=== PATIENT | female | born 1965 | race Hispanic/Latino ===

== ENCOUNTER 2019-07-11 00:40 | Inpatient (IN) | payer OTHER ==
[~2019-07-11] VITALS: Ht 162.6 cm; Wt 89.8 kg
[~2019-07-11 00:40] MED LIST: BACTRIM DS1 EA; [UNRECOGNIZED DRUG - OTHER]; [UNRECOGNIZED DRUG - OTHER]
--- OUTSIDE RECORDS SUMMARY | 2019-07-11 00:44 | XMS REPORT | Summary of Care ---
Author Author Deanna Devlin R.N. Unknown Address Unknown Phone Unavailable Care Team Providers Care Mechanical Technician Name Role Phone LEONARD N.P., JOSETTE Unavailable Unavailable Deanna Devlin R.N. Unavailable Unavailable DORIS N.P., LOUIE Unavailable Unavailable DEDRICK BECKMAN, CODY Ford Unavailable Unavailable DEDRICK Garces, CODY Unavailable Unavailable EDWIN BECKMAN, DELVIN Unavailable Unavailable ADAM BECKMAN MS, KINA Unavailable Unavailable YESSENIA BECKMAN MS, KENDRICK CHAIREZ Unavailable Unavailable LEONARD OIL FURNACE INSTALLER-C, JOSETTE THI Unavailable Unavailable ALDEN BECKMAN, DONALD Unavailable Unavailable Unavailable Unavailable Functional Status Name Dates Details Functional status health issues are not documented Status: Name Dates Details Cognitive status health issues are not documented Status: Problems Name Dates Details 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 (V72.31, Z01.419) Status: Active Visit for screening mammogram (V76.12, Z12.31) Status: Active Arthralgia of multiple sites (719.49, M25.50) Status: Active Morbid or severe obesity due to excess calories (278.01, E66.01) Status: Active Forearm joint pain, left (719.43, M25.532) Status: Active Forearm joint pain, right (719.43, M25.531) Status: Active Chronic low back pain (724.2, M54.5) Status: Active Posterior pain of hip, left (719.45, M25.552) Status: Active Posterior pain of hip, right (719.45, M25.551) Status: Active Arthralgia of left foot (719.47, M25.572) Status: Active Arthralgia of right foot (719.47, M25.571) Status: Active Plantar fasciitis, bilateral (728.71, M72.2) Status: Active Inflammatory arthritis (714.9, M19.90) Status: Active Joint pain (719.40, M25.50) Status: Active Heart palpitations (785.1, R00.2) Status: Active Anxiety (300.00, F41.9) Status: Active Hot flashes (782.62, R23.2) Status: Active Vitamin D deficiency (268.9, E55.9) Status: Active Urticaria (708.9, L50.9) Status: Active Allergic reaction, initial encounter (995.3, T78.40XA) Status: Active Lateral epicondylitis of left elbow (726.32, M77.12) Status: Active Medial epicondylitis, left (726.31, M77.02) Status: Active Chronic right shoulder pain (719.41, M25.511) Status: Active Abnormal findings on imaging test (793.99, R93.89) Status: Active Arthralgia of hand, left (719.44, M25.542) Status: Active Arthralgia of hand, right (719.44, M25.541) Status: Active Breast cancer screening (V76.10, Z12.39) Status: Active Colon cancer screening (V76.51, Z12.11) Status: Active Menopause (627.2, Z78.0) Status: Active Screening for HIV (human immunodeficiency virus) (V73.89, Z11.4) Status: Active Chest pain, atypical (786.59, R07.89) Status: Active Hyperglycemia (790.29, R73.9) Status: Active Screening for osteoporosis (V82.81, Z13.820) Status: Active Morbid obesity (278.01, E66.01) Status: Active Chest pain (786.50, R07.9) Status: Active Pre-op evaluation (V72.84, Z01.818) Status: Active Pre-operative examination (V72.84, Z01.818) Status: Active Benign essential hypertension (401.1, I10) Status: Active Abdominal pain (789.00, R10.9) Status: Active Right upper quadrant abdominal pain (789.01, R10.11) Status: Active Obesity, morbid, BMI 40.0-49.9 (278.01, E66.01) Status: Active Urethral irritation (599.9, N36.8) Status: Active Vaginal discharge (623.5, N89.8) Status: Active Vaginal itching (698.1, N89.8) Status: Active Vaginal odor (625.8, N89.8) Status: Active Vaginitis and vulvovaginitis (616.10, N76.0) Status: Active Medications Name Dates Details EpiPen BUCK Active Losartan Potassium 25 MG Oral Tablet TAKE 1 TABLET DAILY * Quantity: 1 Refills: 5 LEONARD N.P., JOSETTE * Start : 20-Dec-2018 Active 30 Tablet Bottle Terconazole 0.8 % Vaginal Cream INSERT 1 APPLICATORFUL INTRAVAGINALLY AT BEDTIME NIGHTLY FOR 3 DAYS. * Quantity: 1 Refills: 0 DORIS N.P., LOUIE * Start : 19-Apr-2019 Active 20 GM Tube metroNIDAZOLE 0.75 % Vaginal Gel INSERT 1 APPLICATORFUL INTRAVAGINALLY AT BEDTIME NIGHTLY FOR 5 DAYS. * Quantity: 1 Refills: 0 DORIS N.P., LOUIE * Start : 19-Apr-2019 Active 70 GM Tube Allergies and Adverse Reactions Name Dates Details No Known Drug Allergies (Allergy) Status: Active Procedures Procedure Dates Details History of Total Abdominal Hysterectomy Completed History of Tubal Ligation Completed History of Hysterectomy Completed Immunization Name Dates Details Tdap Comments: Approx [id number] Influenza Not Administered Family History Name Dates Details Family history of diabetes mellitus (V18.0, Z83.3) Status: Active Name Dates Details Family history of diabetes mellitus (V18.0, Z83.3) Status: Active Name Dates Details Family history of diabetes mellitus (V18.0, Z83.3) Status: Active Name Dates Details Family history of rheumatoid arthritis (V17.7, Z82.61) Status: Active Family history of cardiac disorder (V17.49, Z82.49) Status: Active Family history of hypertension (V17.49, Z82.49) Status: Active Family history of Presence of stent in artery (V49.89, Z95.828) Status: Active Family history of CABG Status: Active Adopted (V68.89, Z02.82) Status: Active Name Dates Details Family history of osteoarthritis (V17.89, Z82.69) Status: Active Social History Name Dates Details - Status: Name Dates Details Former smoker Vital Signs Date Test Result Details No Known Vitals to report Results Date Description Value Details Results not documented Plan of Care Name Dates Details Planned Observations Planned Goals not documented Instructions Name Dates Details Instructions not documented Encounters Appointment; MARVIN SANTOS P.A. Encounter Diagnosis: Problem not documented On: 15-Nov-2017 15:30 Appointment; ECHO NGUYEN NP Encounter Diagnosis: Problem not documented On: 20-Jan-2018 10:15 Appointment; KINA MEDINA M.D. Encounter Diagnosis: Problem not documented On: 19-Sep-2018 9:30 Appointment; JOSETTE LEONARD NP Encounter Diagnosis: Problem not documented On: 20-Dec-2018 17:30 Appointment; DONALD RUANO M.D. Encounter Diagnosis: Problem not documented On: 16-Jan-2019 14:40 Appointment; JOSETTE LEONARD NP Encounter Diagnosis: Problem not documented On: 23-Jan-2019 15:00 Appointment; IVAN MONTERO Encounter Diagnosis: Problem not documented On: 25-Jan-2019 15:00 Appointment; LOUIE GEORGE NP Encounter Diagnosis: Problem not documented On: 19-Apr-2019 12:45
--- OUTSIDE RECORDS SUMMARY | 2019-07-11 00:44 | XMS REPORT | Summary of Care ---
Author Author Kellee Devlin R.N. Organization Unknown Address Unknown Phone Unavailable Care Team Providers Care Principal Technologist Name Role Phone LEONARD N.P., JOSETTE Unavailable Unavailable Claus Ortega, Kellee Unavailable Unavailable DORIS N.P., LOUIE Unavailable Unavailable DEDRICK BECKMAN, CODY Ford Unavailable Unavailable DEDRICK Garces, CODY Unavailable Unavailable EDWIN BECKMAN, DELVIN Unavailable Unavailable ADAM BECKMAN SD, KINA Unavailable Unavailable YESSENIA BECKMAN SD, KENDRICK CHAIREZ Unavailable Unavailable HORACIO NUCLEAR FUELS RESEARCH ENGINEER-C, JOSETTE THI Unavailable Unavailable ALDEN BECKMAN, DONALD Unavailable Unavailable Unavailable Unavailable Functional Status Name Dates Details Functional status health issues are not documented Status: Name Dates Details Cognitive status health issues are not documented Status: Problems Name Dates Details 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 (V72.31, Z01.419) Status: Active Visit for [...] Immunization Name Dates Details Tdap Comments: Approx [id number] Influenza Not Administered Family History Name Dates [...] smoker Vital Signs Date Test Result Details [id number] BP Systolic 132 mm[Hg] Status: Comments: Location: [facility]; Position: Sitting BP Diastolic 90 mm[Hg] Status: Comments: Location: [facility]; Position: Sitting Height 64 in Status: Weight 240.5625 lb Status: Body Mass Index Calculated 41.29 kg/m2 Status: Body Surface Area Calculated 2.12 m2 Status: Temperature 98 f Status: Comments: Method: Temporal Heart Rate 70 /min Status: Comments: Location: L Brachial Artery; Respiration Rate 16 /min Status: Comments: Quality: Normal Results Date Description Value Details :00 [[facility]] URINALYSIS, COMPLETE COLOR DARK YELLOW (Normal) Range: YELLOW APPEARANCE CLOUDY (Abnormal) Range: CLEAR SPECIFIC GRAVITY 1.035 (Normal) Range: 1.001-1.035 PH 5.5 (Normal) Range: 5.0-8.0 GLUCOSE NEGATIVE (Normal) Range: NEGATIVE BILIRUBIN NEGATIVE (Normal) Range: NEGATIVE Comments: Verified by repeat analysis. KETONES 3+ (Abnormal) Range: NEGATIVE OCCULT BLOOD TRACE (Abnormal) Range: NEGATIVE PROTEIN 1+ (Abnormal) Range: NEGATIVE NITRITE NEGATIVE (Normal) Range: NEGATIVE LEUKOCYTE ESTERASE 2+ (Abnormal) Range: NEGATIVE WBC > OR=60 {/HPF} (Abnormal) Range: < OR=5 RBC 3-10 {/HPF} (Abnormal) Range: < OR=2 SQUAMOUS EPITHELIAL CELLS > OR=28 {/HPF} (Abnormal) Range: < OR=5 BACTERIA FEW {/HPF} (Abnormal) Range: NONE SEEN CALCIUM OXALATE CRYSTALS FEW {/HPF} (Normal) Range: NONE OR FEW HYALINE CAST 4-5 {/LPF} (Abnormal) Range: NONE SEEN COMMENTS MODERATE MUCOUS THREADS :00 [[facility]] CULTURE, URINE, ROUTINE CULTURE Comments: CULTURE, URINE, ROUTINE Micro Number: [id number] Test Status: Final Specimen Source: URINE Specimen Quality: Adequate Result: Three or more organisms present, each greater than 10,000 CFU/mL. May represent normal zurdo contamination from external genitalia. No further testing is required. Plan of Care Name Dates Details Planned [...]
--- OUTSIDE RECORDS SUMMARY | 2019-07-11 00:44 | XMS REPORT ---
Author Author [facility] Address Unknown Phone Unavailable Care Team Providers Care Medical Secretary Receptionist Name Role Phone Unavailable Unavailable Payers Payer Name Policy Type Policy Number Effective Date Expiration Date Problems This patient has no known problems. Allergies, Adverse Reactions, Alerts Allergy Name Allergy Type Status Severity Reaction(s) Onset Date Inactive Date Treating Clinician Comments No Known Contrast Allergies DA Active U 2008-10-11 00:00:00 No Known Drug Allergies DA Active U 2008-10-11 00:00:00 No Known Food Allergies DA Active U 2008-10-11 00:00:00 No Known Other Allergies DA Active U 2008-10-11 00:00:00 Medications This patient has no known medications. Results Test Description Test Time Test Comments Text Results Atomic Results Result Comments SCR MAMM BILATERAL EUNICE CAD DIGITAL 2019-01-09 09:17:55 - SCR MAMM BILATERAL EUNICE CAD DIGITALBILATERAL DIGITAL SCREENING MAMMOGRAM 3D/2D WITH CAD: 01/05/2019CLINICAL: Asymptomatic. Digital breast tomosynthesis was performed in addition to routine CC and MLO views. Current mammographic images were evaluated by either a [employer] M-Vu or a [employer] ImageChecker CAD (computer aided detection system). No prior exams were available for comparison. The tissue of both breasts is heterogeneously dense. This may lower the sensitivity of mammography. No suspicious mass, architectural distortion, malignant type calcification, or lymph node abnormality detected. IMPRESSION: NEGATIVEThere is no mammographic evidence of malignancy. Resume annual screening mammography in one year. Benson mckay/gretarad:01/09/2019 09:17:55 Branch Library Clerk: Katherine Gardner FW, [facility]-FWletter sent: BIRADS 1-2 Normal Mammogram BI-RADS: 1 Negative - CT MAXIFAC W/O CONTRAST 2018-10-06 07:35:00 Name: ARIAS WALKER [facility] Thuy Peacock : 1965 Age/S: 53 / F [address] [place] [address] Blvd Unit #: [id number] Loc: [place] [address] Phys: Jeremy Stern MD Acct: [id number] Dis Date: Status: REG CLI PHONE #: [phone] Exam Date: 10/06/2018 07 FAX #: [phone] Reason: J32.4 CHRONIC PANSINUSUTUS EXAMS: CPT CODE: [id number] CT MAXIFAC W/O CONTRAST 96495 Study: - CT MAXIFAC W/O CONTRAST 10/06/2018 6:57 AM Clinical Indication: J32.4 CHRONIC PANSINUSUTUS Comparison: No prior similar examinations are available for review. TECHNIQUE: Multiple noncontrast transaxial CT images were obtained through the paranasal sinuses. Sagittal and coronal reformatted images were prepared. DOSE: CT imaging performed at this location utilizes radiation dose optimization technique which includes one or more of the followin) Automated exposure control; 2) Adjustment of the mA and/or kV according to patient's size; 3) Use of iterative reconstruction techniques. DLP (mGy-cm): 280 FINDINGS: ETHMOID SINUS: No significant mucoperiosteal thickening. MAXILLARY SINUSES: Mild mucosal thickening in the maxillary sinuses measuring up to 0.3 cm on the right and 0.2 cm on the left. FRONTAL SINUS: No significant mucoperiosteal thickening. The frontoethmoidal recesses are clear. SPHENOID SINUS: No significant mucoperiosteal thickening. The sphenoethmoidal recesses are clear. MASTOIDS: The visualized portions are well aerated. NASAL PASSAGES: Turbinates: The nasal turbinates are normal in appearance. Nasal septum: Mild rightward convexity of the posterior nasal septum and leftward convexity of the anterior nasal septum. Ostiomeatal complexes: Both ostiomeatal units are clear. IMPRESSION: 1. Mild mucosal thickening in the bilateral maxillary sinuses. 2. Mild convexity rightward convexity of the posterior nasal septum PAGE 1 Signed Report (CONTINUED) Name: ARIAS WALKER [facility] Thuy Peacock : 1965 Age/S: 53 / F [address] [place] [address] Unit #: [id number] Loc: [place] [address] Phys: Jeremy Stern MD Acct: [id number] Dis Date: Status: REG CLI PHONE #: [phone] Exam Date: 10/06/2018709 FAX #: [phone] Reason: J32.4 CHRONIC PANSINUSUTUS EXAMS: CPT CODE: [id number] CT MAXIFAC W/O CONTRAST 54459 <Continued> SL: [id number] at 0735 Reported and signed by: See Huang M.D. CC: Jeremy Stern MD Technologist:RT Aby(R)(CT) CTDI: DLP: Trnscb Date/Time: 10/06/2018 (0735) [email or web address] Orig Print D/T: S: 10/06/2018 (0738) PAGE 2 Signed Report
[2019-07-11] MEDS ORDERED: KETOROLAC TROMETHAMINE 30 MG/ML VIAL IV STA (01:27)
[2019-07-11] MEDS ORDERED: SODIUM CHLORIDE 0.9% 1000ML 2,000 ML IV STA (01:27)
[2019-07-11] MEDS ORDERED: ONDANSETRON HCL INJ 2MG/ML 2ML 2 MG/ML VIAL IV STA (01:27)
[2019-07-11] MEDS ORDERED: MORPHINE SULFATE INJ 4 MG/ML INJ 1ML IV ONE (01:30)
[2019-07-11 01:44] LABS: BASOPHILS % 0.4 % (0.0-1.0); EOSINOPHILS # (AUTO) 0.2 (0.0-0.4); EOSINOPHILS % 1.7 % (0.0-6.0); HEMOGLOBIN 14.8 g/dL (12.0-16.0); LYMPHOCYTES # (AUTO) 2.6 (1.0-3.2); LYMPHOCYTES % 26.7 % (18.0-39.1); MEAN CORPUSCULAR HEMOGLOBIN 31.2 pg (28-32); MEAN CORPUSCULAR HGB CONC 33.6 g/dL (31-35); MEAN CORPUSCULAR VOLUME 92.6 fL (81-99); MONOCYTES # (AUTO) 0.8 (0.2-0.8); MONOCYTES % 7.9 % (4.4-11.3); NEUTROPHILS # (AUTO) 6.2 (2.1-6.9); NEUTROPHILS % 63.1 % (38.7-80.0); PLATELET COUNT 215 x10e3/uL (140-360); RED BLOOD COUNT 4.75 x10e6/uL (3.6-5.1); RED CELL DISTRIBUTION WIDTH 14.3 % (11.7-14.4)
[2019-07-11] MEDS ORDERED: MORPHINE SULFATE INJ 4 MG/ML INJ 1ML ONE (01:44)
[2019-07-11] MEDS ORDERED: MORPHINE SULFATE 2 MG/ML SYR 1ML ONE (01:45)
[2019-07-11 01:54] LABS: BILIRUBIN,URINE 3+ (NEGATIVE); CLARITY,URINE CLOUDY (CLEAR); COLOR,URINE YELLOW (YELLOW); KETONES,URINE NEGATIVE (NEGATIVE); LEUKOCYTE ESTERASE ,URINE TRACE (NEGATIVE); NITRITE,URINE NEGATIVE (NEGATIVE); PROTEIN,URINE DIPSTICK 1+ (NEGATIVE); URINE UROBILINOGEN 0.2 mg/dL (0.2 - 1)
[2019-07-11 01:56] LABS: AMYLASE 39 U/L (25-125); LIPASE 28 U/L (8-78)
[2019-07-11 01:57] LABS: ALANINE AMINOTRANSFERASE 30 IU/L (0-55); ALBUMIN/GLOBULIN RATIO 1.4 (0.8-2.0); ALKALINE PHOSPHATASE 111 IU/L (40-150); ANION GAP 15.3 mmol/L (8-16); BLOOD UREA NITROGEN 14 mg/dL (7-26); BUN/CREATININE RATIO 15 (6-25); CALCIUM 9.3 mg/dL (8.4-10.2); CARBON DIOXIDE 20 mmol/L (22-29); CHLORIDE 110 mmol/L (98-107); CREATININE, SERUM 0.92 mg/dL (0.57-1.11); EST GLOMERULAR FILTRATION RATE > 60 ML/MIN (60-); GLUCOSE 111 mg/dL (74-118); POTASSIUM 3.3 mmol/L (3.5-5.1); SODIUM 142 mmol/L (136-145)
[2019-07-11 01:58] LABS: BACTERIA,URINE MANY /HPF; EPITHELIAL CELLS,URINE FEW /LPF; RBC,URINE >50 /HPF (0-5)
[2019-07-11 01:59] LABS: CALCIUM OXALATE CRYSTALS,UR MANY (FEW); MUCUS,URINE FEW (RARE)
[2019-07-11] MEDS ORDERED: MORPHINE SULFATE INJ 4 MG/ML INJ 1ML IV PRN (02:00)
[2019-07-11] MEDS ORDERED: IOPAMIDOL 370 MG/ML 200 ML INFUS..BTL INJ ONE (03:02)
[2019-07-11] MEDS ORDERED: SODIUM CHLORIDE 0.9% 50ML 50 ML ONE (03:03)
--- NOTE | 2019-07-11 04:14 | Diagnostic Imaging Report ---
EXAMINATION: CHEST SINGLE (PORTABLE) INDICATION: Right lower quadrant pain, abdominal pain, hematuria COMPARISON: None FINDINGS: TUBES and LINES: None. LUNGS: Normal lung volumes. Lungs are clear. No consolidations. PLEURA: No pleural effusion or pneumothorax. HEART AND MEDIASTINUM: The cardiomediastinal silhouette is unremarkable. BONES AND SOFT TISSUES: No acute osseous lesion. Soft tissues are unremarkable. UPPER ABDOMEN: No free air under the diaphragm. IMPRESSION: No acute thoracic radiographic abnormality. Signed by: Casper Woo DO on 07/11/2019 4:11 AM
--- NOTE | 2019-07-11 04:40 | Diagnostic Imaging Report ---
EXAM: Transabdominal and Transvaginal Pelvic Ultrasound INDICATION: Right lower quadrant pain COMPARISON: None TECHNIQUE: Grayscale transverse and sagittal transabdominal and transvaginal images were obtained of the pelvis. Transvaginal imaging was medically necessary to better evaluate the endometrium and the adnexa. CLINICAL HISTORY: 89 year old G... ; hysterectomy FINDINGS: Uterus: Removed. Ovaries not seen. Adnexa: Normal Cul-de-sac: No free fluid IMPRESSION: Patient has had hysterectomy and the ovaries were not seen. Otherwise no sonographic abnormality. Signed by: Casper Woo DO on 07/11/2019 4:37 AM
--- NOTE | 2019-07-11 04:45 | Diagnostic Imaging Report ---
EXAM: CT Abdomen and Pelvis WITH contrast INDICATION: Right lower quadrant pain COMPARISON: Same day pelvis ultrasound TECHNIQUE: Abdomen and pelvis were scanned utilizing a multidetector helical scanner from the lung base to the pubic symphysis after administration of IV contrast. Coronal and sagittal reformations were obtained. Routine protocol was performed. Scan was performed when during portal venous phase. IV CONTRAST: 100 mL of Isovue 370 ORAL CONTRAST: Water COMPLICATIONS: None RADIATION DOSE: Total DLP: 709 mGy*cm Estimated effective dose: (DLP x 0.015 x size factor) mSv CTDIvol has been reviewed. It is below the limits set by the Radiation Protocol Committee (RPC). Dose modulation, iterative reconstruction, and/or weight based adjustment of the mA/kV was utilized to reduce the radiation dose to as low as reasonably achievable. FINDINGS: LINES and TUBES: None. LOWER THORAX: Unremarkable HEPATOBILIARY: No focal hepatic lesions. No biliary ductal dilation. GALLBLADDER: No radio-opaque stones or sludge. No wall thickening. Distended. SPLEEN: No splenomegaly. PANCREAS: No focal masses or ductal dilatation. ADRENALS: No adrenal nodules KIDNEYS/URETERS: A 5 mm obstructive calculus in the proximal right ureter with mild right hydronephrosis. Mild right renal hypoenhancement relative to the left. No hydronephrosis. No cystic or solid mass lesions. GI TRACT: No abnormal distention, wall thickening, or evidence of bowel obstruction. Moderate colonic stool burden. Intact changes of partial gastrectomy. Appendix is normal. PELVIC ORGANS/BLADDER: Unremarkable. LYMPH NODES: No lymphadenopathy. VESSELS: Unremarkable. PERITONEUM / RETROPERITONEUM: No free air or fluid. BONES: There are degenerative changes in the spine. SOFT TISSUES: Unremarkable. IMPRESSION: 1. A 5 mm obstructive calculus in the proximal right ureter with mild right hydronephrosis. 2. Moderate colonic stool burden, correlate for constipation. 3. Distended gallbladder, correlate for cholecystitis. Signed by: Casper Woo DO on 07/11/2019 4:42 AM
[2019-07-11 04:54] LABS: AMPHETAMINES SCREEN,URINE NEGATIVE (NEGATIVE); BENZODIAZEPINES SCREEN,URINE NEGATIVE (NEGATIVE); PHENCYCLIDINE SCREEN,URINE NEGATIVE (NEGATIVE)
[2019-07-11] MEDS ORDERED: POTASSIUM CHLORIDE 10MEQ EA PO ONE (06:00)
[2019-07-11] MEDS ORDERED: CEFTRIAXONE SOD 1 GM VIAL IV SCH (06:00)
--- NOTE | 2019-07-11 06:31 | History and Physical ---
REASON FOR ADMISSION: Right kidney stone. HISTORY OF PRESENT ILLNESS: The patient is a 54-year-old lady, presented after she has history of right-sided abdominal flank pain where she was noticed in the emergency room on CT scan to have a 5 mm obstructing kidney stone, is currently pain free after pain medications, so she has been admitted for further evaluation. PAST MEDICAL HISTORY: Weight loss. PAST SURGICAL HISTORY: Otherwise unremarkable. MEDICATIONS: None. ALLERGIES: SEE MAR. SOCIAL HISTORY: . Nonsmoker, nondrinker. FAMILY HISTORY: Hypertension. PHYSICAL EXAMINATION: VITAL SIGNS: Temperature 98.6, pulse 74, blood pressure 136/78, and sats 98% on room air. GENERAL: She is no apparent distress, lying in bed. NECK: Supple. CARDIOVASCULAR: Regular rate and rhythm. LUNGS: Clear to auscultation bilaterally. ABDOMEN: Good bowel sounds. Soft, nontender. No flank tenderness. EXTREMITIES: No clubbing or cyanosis. NEUROLOGIC: Nonfocal. ASSESSMENT AND PLAN: 1. Kidney stone. We will go ahead and consult Urology and make the patient n.p.o. and continue with pain medication. 2. Abdominal pain/flank pain. We will continue with pain control. 3. Hypokalemia. We will replace. 4. Urinary tract infection. We will place her on IV antibiotics. Please see hospital chart for full details. MD NIR Schmidt/ADA /[id number]
[2019-07-11] MEDS: CEFTRIAXONE SOD 1 GM/NS 50 ML 50 ML IV SCH (06:36)
--- NOTE | 2019-07-11 09:20 | Diagnostic Imaging Report ---
EXAM: Right upper quadrant abdominal ultrasound INDICATION: Abdominal pain, query cholecystitis. COMPARISON: CT abdomen/pelvis 07/11/2019. TECHNIQUE: Transverse and longitudinal images of the right upper quadrant abdomen were obtained FINDINGS: Liver: Size: 17.5 cm in the right midclavicular line, normal Appearance: Increased echogenicity, smooth contour Mass: No focal masses Gallbladder: Distended gallbladder with sludge. Gallbladder wall measures 0.2 cm. Negative reported sonographic Avalos's sign. Bile Ducts: Intrahepatic Ducts: Mild intrahepatic ductal dilatation. Extrahepatic Ducts: Common bile duct measures 0.9 centimeters. Pancreas: Visualized portions appear unremarkable. Kidney: The right kidney measures 11.4 cm without evidence of hydronephrosis or stone. Vessels: Aorta: Visualized portions are normal. The distal aorta is not visualized due to overlying gas. Inferior Vena Cava: Visualized portions are normal Main Portal Vein: 1.0 cm, normal size with hepatopetal flow. Free Fluid: No ascites or pleural effusion IMPRESSION: Distended CBD, measuring up to 0.9 cm without visible stone. MRCP is recommended for further evaluation. Distended gallbladder with sludge. No evidence of cholelithiasis or specific findings of acute cholecystitis. Hepatomegaly and hepatic steatosis. Mild right hydronephrosis. Signed by: Dr. Salinas Lechuga MD on 07/11/2019 9:17 AM
--- NOTE | 2019-07-11 14:55 | Diagnostic Imaging Report ---
Exam: KUB - 2 views Indication: Hydronephrosis, renal calculi Comparison: CT abdomen and pelvis of 07/11/2019 Findings: There is mild right hydronephrosis and residual contrast in the right renal collecting system. Minimal residual contrast in the left renal collecting system. The right proximal ureteral calculus seen on CT of earlier the same day is not well seen on this radiograph. Surgical sutures in the left upper quadrant related to partial gastrectomy. Surgical clips in the right abdomen. Nonobstructive bowel gas pattern. No free air. Fluid within the pelvis. Small amount of contrast material in the bladder. Impression: Redemonstration of mild right hydronephrosis. Right ureteral calculus seen on CT of earlier the same day is not well visualized on this radiograph. Signed by: Negrita Barrera MD on 07/11/2019 2:52 PM
[2019-07-11 20:00] VITALS: BP 128/77
--- NOTE | 2019-07-11 20:02 | NUR ---
RECEIVED REPORT FROM [facility] NURSE. CALL LIGHT WITHIN REACH. PATIENT ARRIVED VIA WHEELCHAIR. PATIENT IN NO PAIN OR DISTRESS.
--- NOTE | 2019-07-11 20:29 | Consultation ---
DATE OF CONSULTATION: 07/11/2019 Urology Consultation REASON FOR CONSULTATION: Obstructive uropathy. HISTORY OF PRESENT ILLNESS: Loulou Joshua is a 54-year-old woman without any previous urological history. She denies hematuria, dysuria, drug infections, or urolithiasis. Denies any urinary incontinence. The patient has severe right-sided flank pain with nausea and vomiting. Reported to the emergency room. Underwent CT scanning with contrast, which revealed obstructing right midureteral stone. The patient's nausea and vomiting have improved. The patient's urine unfortunately has not been strained and the patient has not been on intravenous fluids despite being n.p.o. PAST MEDICAL AND SURGICAL HISTORY: 1. 3, para 3 by spontaneous vaginal delivery. 2. Bilateral tubal ligation. 3. Total vaginal hysterectomy. 4. "Duodenal switch" and gastric sleeve. ALLERGIES: NONE KNOWN. CURRENT MEDICATIONS: Please refer to the MAR. SOCIAL HISTORY: The patient denies smoking, ethanol, or drug use. She has supportive at the bedside. FAMILY HISTORY: Noncontributory to the active urological problems. REVIEW OF SYSTEMS: Discussed as above in the history of present illness and past medical history, otherwise negative for all systems. PHYSICAL EXAMINATION: GENERAL: Obese woman lying in bed, in no apparent distress. VITAL SIGNS: She is currently afebrile. Vital signs are currently stable. ABDOMEN: Soft, nondistended. It is tender in the right flank with right-sided costovertebral angle tenderness. Kidneys are not palpable without hepatosplenomegaly. No obvious evidence of hernia. For the remaining physical examination systems, please refer to the admission history and physical as well as the ERT sheet. LABORATORY STUDIES: CT scan of the abdomen and pelvis revealed a 5 mm obstructing stone in the proximal right ureter with right-sided hydroureteronephrosis. There is enhancement of the right kidney compared to the left due to this obstruction. There is a distended gallbladder also present. Urine culture is pending. White blood cell count is 9800, hemoglobin 14.8, and platelets 215,000. The patient's potassium is low at 3.3. Her creatinine is 0.92, calcium is normal at 9.3. Urinalysis significant for greater than 50 rbc's, 11-20 wbc's, many calcium oxalate crystals, many bacteria. ASSESSMENT: 1. Right renal colic. 2. Nausea and vomiting. 3. Obesity. 4. Right ureterolithiasis. 5. Right hydroureteronephrosis. 6. Hypocholesterolemia. 7. Urinary tract infection. 8. Microscopic hematuria. PLAN: 1. Intravenous antibiotics. 2. Intravenous hydration. 3. Straining of the urine. 4. I will post the patient for cystoscopy and retrograde pyelograms and insertion of temporary indwelling ureteral stent. I informed the patient and her that she will need followup and management of that stent with potential dire consequences of noncompliance. Thank you much for involving us in care of your patient. We will be happy to follow along with you as well as an outpatient. MD SUSIE Quintero/ADA /[id number] BRANDIN
[2019-07-11 20:30] VITALS: BP 128/77
[2019-07-11] MEDS ORDERED: INFLUENZA VIRUS VAC SPLIT INJ 0.5 ML SYR IM SCH (20:38)
[2019-07-11] MEDS ORDERED: PNEUMOCOCCAL VACCINE POLYVALENT 23 MCG/0.5 ML VIAL IM SCH (20:38)
[2019-07-11 20:59] VITALS: BP 128/77
--- NOTE | 2019-07-11 21:44 | NUR ---
CALLED AND TALKED TO DR. ALTAMIRANO ABOUT PATIENT BEING IN PAIN AND WANTING SOMETHING FOR PAIN. DR. ALTAMIRANO ORDERED MORPHINE 2 MG Q2H, TORADOL 30 MG Q6H, AND TYLENOL 1G IV. HE ALSO SAID TO STRAIN THE URINE
[2019-07-11] MEDS ORDERED: MORPHINE SULFATE 2 MG/ML SYR 1ML IV PRN (22:45)
[2019-07-11] MEDS ORDERED: KETOROLAC TROMETHAMINE 30 MG/ML VIAL IV PRN (22:45)
[2019-07-11] MEDS ORDERED: ACETAMINOPHEN 1000 MG/100 ML IV PRN (22:45)
[2019-07-12] VITALS (7 sets, daily range): BP systolic 133–165; BP diastolic 77–97
[2019-07-12] MEDS: CEFTRIAXONE SOD 1 GM/NS 50 ML 50 ML IV SCH (05:58)
[2019-07-12] MEDS ORDERED: SODIUM CHLORIDE 0.9% 250ML 250 ML ONE (06:08)
--- NOTE | 2019-07-12 07:00 | NUR ---
GAVE REPORT TO ONCOMING NURSE. CALL LIGHT WITHIN REACH. PATIENT IN BED. AT BEDSIDE
--- NOTE | 2019-07-12 07:18 | NUR ---
PATIENT LEFT IN HER BED FOR THE CYSTOSCOPY.
--- NOTE | 2019-07-12 07:26 | NUR ---
Received patient this morning and then was picked up for procedure r/t ureterolithiasis with placement of stents
[2019-07-12 07:39] LABS: BASOPHILS % 0.8 % (0.0-1.0); EOSINOPHILS # (AUTO) 0.2 (0.0-0.4); EOSINOPHILS % 4.2 % (0.0-6.0); HEMATOCRIT 39.4 % (34.2-44.1); HEMOGLOBIN 12.4 g/dL (12.0-16.0); LYMPHOCYTES # (AUTO) 2.1 (1.0-3.2); LYMPHOCYTES % 39.8 % (18.0-39.1); MEAN CORPUSCULAR HEMOGLOBIN 30.5 pg (28-32); MEAN CORPUSCULAR HGB CONC 31.5 g/dL (31-35); MEAN CORPUSCULAR VOLUME 96.8 fL (81-99); MONOCYTES # (AUTO) 0.6 (0.2-0.8); NEUTROPHILS # (AUTO) 2.3 (2.1-6.9); PLATELET COUNT 173 x10e3/uL (140-360); RED BLOOD COUNT 4.07 x10e6/uL (3.6-5.1); RED CELL DISTRIBUTION WIDTH 14.7 % (11.7-14.4)
[2019-07-12] MEDS ORDERED: B&O 60MG R/S 60 MG SUPP PR ONE (07:56)
[2019-07-12] MEDS ORDERED: IOPAMIDOL 300MG/ML 50ML INFUS..BTL IV ONE (07:56)
[2019-07-12 08:10] LABS: ALANINE AMINOTRANSFERASE 46 IU/L (0-55); ALBUMIN 3.4 g/dL (3.5-5.0); ALBUMIN/GLOBULIN RATIO 1.3 (0.8-2.0); ALKALINE PHOSPHATASE 101 IU/L (40-150); ANION GAP 9.6 mmol/L (8-16); BLOOD UREA NITROGEN 12 mg/dL (7-26); BUN/CREATININE RATIO 15 (6-25); CALCIUM 8.7 mg/dL (8.4-10.2); CARBON DIOXIDE 26 mmol/L (22-29); CHLORIDE 112 mmol/L (98-107); CREATININE, SERUM 0.81 mg/dL (0.57-1.11); EST GLOMERULAR FILTRATION RATE > 60 ML/MIN (60-); GLUCOSE 95 mg/dL (74-118); POTASSIUM 3.6 mmol/L (3.5-5.1); SODIUM 144 mmol/L (136-145)
[2019-07-12] MEDS ORDERED: B&O 60MG R/S 60 MG SUPP PR PRN (08:45)
--- NOTE | 2019-07-12 09:37 | NUR ---
Patient returned from having procedure done, s/p C/S with right stent placement, will obtain urine for c/s per orders, in bed, no distress at this time, call go Dr. Alexander by apartment community manager for consult.
[2019-07-12] MEDS: ACETAMINOPHEN/CODEINE 300MG - 30MG TAB PO PRN ×2 (09:46→18:39)
[2019-07-12] MEDS: PHENAZOPYRIDINE HCL 100 MG TAB PO SCH ×3 (09:47→18:38)
[2019-07-12] MEDS: OXYBUTYNIN CHLORIDE 5 MG TAB PO SCH ×3 (09:47→20:56)
[2019-07-12] MEDS ORDERED: PROPOFOL IV EMULSION 10 MG/ML 20 ML VIAL ONE (13:57)
[2019-07-12] MEDS ORDERED: DEXAMETHASONE SOD PHOS INJ 4 MG/ML VIAL ONE (13:57)
[2019-07-12] MEDS ORDERED: ONDANSETRON HCL INJ 2MG/ML 2ML 2 MG/ML VIAL ONE (13:57)
[2019-07-12] MEDS ORDERED: LIDOCAINE HCL 2% LOCAL INJ 5 ML SDV VIAL INJ ONE (13:57)
[2019-07-12] MEDS ORDERED: SEVOFLURANE INHAL SOLN 250 ML PEN BTL ONE (13:57)
[2019-07-12] MEDS ORDERED: MIDAZOLAM HCL 2 MG/2 ML VIAL ONE (18:17)
[2019-07-12] MEDS ORDERED: FENTANYL CITRATE/PF 100MCG/2 ML INJ ONE (18:17)
--- NOTE | 2019-07-12 18:33 | NUR ---
Patient stable, still straining urine, voiding well, pains well managed, second call to notify Dr. Alexander's office about consult given that he was here today per other staff but patient states she has not been seen. No call back yet at this time,
--- NOTE | 2019-07-12 19:10 | NUR ---
RECEIVED REPORT FROM PREVIOUS NURSE. CALL LIGHT WITHIN REACH. PATIENT IN BED. PATIENT IN NO PAIN OR DISTRESS. PATIENT AWAITING DR. ISSA AND DR. BUTTS TO SEE HER. PATIENT IS STRAINING HER URINE
[2019-07-13] VITALS: BP 139/84
--- NOTE | 2019-07-13 00:47 | NUR ---
DID HOURLY ROUNDING AND PATIENT IS ASLEEP IN BED.
[2019-07-13 04:00] VITALS: BP 138/80
[2019-07-13] MEDS: CEFTRIAXONE SOD 1 GM/NS 50 ML 50 ML IV SCH (06:12)
[2019-07-13 06:14] LABS: BASOPHILS % 0.5 % (0.0-1.0); EOSINOPHILS % 0.6 % (0.0-6.0); HEMATOCRIT 38.8 % (34.2-44.1); HEMOGLOBIN 12.5 g/dL (12.0-16.0); LYMPHOCYTES # (AUTO) 2.3 (1.0-3.2); LYMPHOCYTES % 36.5 % (18.0-39.1); MEAN CORPUSCULAR HEMOGLOBIN 30.8 pg (28-32); MEAN CORPUSCULAR HGB CONC 32.2 g/dL (31-35); MEAN CORPUSCULAR VOLUME 95.6 fL (81-99); MONOCYTES # (AUTO) 0.6 (0.2-0.8); MONOCYTES % 8.7 % (4.4-11.3); NEUTROPHILS # (AUTO) 3.4 (2.1-6.9); NEUTROPHILS % 53.5 % (38.7-80.0); PLATELET COUNT 180 x10e3/uL (140-360); RED BLOOD COUNT 4.06 x10e6/uL (3.6-5.1); RED CELL DISTRIBUTION WIDTH 14.6 % (11.7-14.4)
[2019-07-13 06:36] LABS: ANION GAP 11.5 mmol/L (8-16); BLOOD UREA NITROGEN 10 mg/dL (7-26); BUN/CREATININE RATIO 13 (6-25); CARBON DIOXIDE 24 mmol/L (22-29); CHLORIDE 110 mmol/L (98-107); CREATININE, SERUM 0.77 mg/dL (0.57-1.11); EST GLOMERULAR FILTRATION RATE > 60 ML/MIN (60-); POTASSIUM 3.5 mmol/L (3.5-5.1); SODIUM 142 mmol/L (136-145)
[2019-07-13 06:49] LABS: GLUCOSE 86 mg/dL (74-118)
--- NOTE | 2019-07-13 06:59 | NUR ---
GAVE REPORT TO ONCOMING NURSE. CALL LIGHT WITHIN REACH. PATIENT IN BED.
[2019-07-13] MEDS: PHENAZOPYRIDINE HCL 100 MG TAB PO SCH ×2 (08:13→14:00)
[2019-07-13] MEDS: OXYBUTYNIN CHLORIDE 5 MG TAB PO SCH ×2 (08:13→14:00)
[2019-07-13 08:28] VITALS: BP 146/92
[2019-07-13 08:59] VITALS: BP 146/92
--- NOTE | 2019-07-13 10:26 | Diagnostic Imaging Report ---
MRI/MRCP of the abdomen, without contrast, 07/13/2019. History: Gallbladder sludge with CBD dilatation. Comparison: Ultrasound and CT abdomen 07/11/2019. TECHNIQUE: Multiplanar, multisequence images of the abdomen were acquired without the administration of intravenous gadolinium as per the MRCP protocol. Three-dimensional reconstructions were acquired and utilized by the dictating radiologist at the time of interpretation. Discussion: The gallbladder contains posteriorly layering hypointense material without evidence of wall thickening or pericholecystic fluid. Gallbladder diameter measures 4.7 cm. There is no intrahepatic biliary ductal dilatation. The CBD measures 10 mm in diameter. There is no intraluminal filling defect. Evaluation of intra-abdominal organs is limited without IV contrast. The liver, spleen, pancreas, kidneys, and adrenal glands are unremarkable. There is no evidence of free fluid. IMPRESSION: Gallbladder sludge and CBD dilatation without evidence of choledocholithiasis. Signed by: Quan Donaldson on 07/13/2019 10:24 AM
[2019-07-13 11:41] VITALS: BP 163/93
[2019-07-13 15:41] VITALS: BP 149/87
[2019-07-13] MEDS ORDERED: DITROPAN XL5 MG PO (18:09)
[2019-07-13] MEDS ORDERED: TYLENOL WITH C1 EACH PO (18:10)
--- NOTE | 2019-07-13 18:27 | NUR ---
patient cleared by Dr Victor and Dr Conley. discharged home with follow up orders.
--- NOTE | 2019-07-14 06:46 | Discharge Summary ---
DISCHARGE DIAGNOSIS: Right kidney stone. HISTORY OF PRESENT ILLNESS AND HOSPITAL COURSE: The patient is a lady, who presented with right abdominal pain, was found to have a 5 mm right kidney stone with obstruction, so she was brought in and placed on IV fluids, pain medication, was seen by Dr. Conley, who took her to the OR and placed a stent without any complications. Of note, she did have an ultrasound and that she had some gallbladder dilation, so she had an MRCP done that just showed gallbladder sludging with no evidence of choledocholithiasis. She was seen by GI, who will follow her up as an outpatient. She will see Dr. Conley in 2 weeks as an outpatient for continued care for her kidney stone. The patient was very happy about going home. So, please see hospital chart for full details. MD NIR Schmidt/ADA /[id number]
--- NOTE | 2019-08-05 19:46 | Operative Report ---
DATE OF PROCEDURE: 07/12/2019 SURGEON: Maxx Conley MD PREOPERATIVE DIAGNOSES: 1. Right ureterolithiasis. 2. Right hydronephrosis due to stone. 3. Microhematuria. 4. Urinary tract infection. POSTOPERATIVE DIAGNOSES: 1. Right ureterolithiasis. 2. Right hydronephrosis due to stone. 3. Microhematuria. 4. Urinary tract infection. 5. Grade 1 cystocele. 6. Urethral hypermobility. 7. Grade 2 rectocele. 8. Atrophic (senile) vaginitis. OPERATIONS PERFORMED: 1. Cystourethroscopy with bilateral ureteral catheterization and retrograde ureteropyelography (separate procedure performed for the hematuria and urine tract infections). 2. Interpretation of retrograde ureteropyelography. 3. Supervision of fluoroscopy, no radiologist present. 4. Cystourethroscopy with manipulation of right proximal ureteral stone (separately procedure performed in pushing the right proximal ureteral stone from the proximal ureter into the renal pelvis to relieve the hydronephrosis). 5. Radiological services for supervision and interpretation of stone manipulation. 6. Cystourethroscopy with insertion of right indwelling ureteral stent (separate procedure performed to relieve the hydronephrosis). 7. Pelvic examination under anesthesia. ANESTHESIA: General. COMPLICATIONS: None. CLINICAL SUMMARY: Please refer to consultation dictation from the same hospitalization. OPERATIVE PROCEDURE IN DETAIL: Informed consent was verified. Loulou Joshua was properly identified, taken to the operating room, and placed on the cystoscopy table in supine position. Anesthesia was uneventfully begun. The patient was then carefully and gently repositioned in the dorsal lithotomy position with all pressure points well padded. Her genitalia were prepared and draped in usual sterile fashion. Cystoscope sheath with obturator in place was atraumatically inserted in the patient's urethra and the bladder was drained. Panendoscopy of the bladder revealed grade 1 trabeculations, but there were no tumors, no stones, no diverticula, no suspicious mucosal lesions were identified. An 8-Syriac catheter was used to cannulate the left ureter and retrograde ureteropyelograms were performed. It was then inserted in the right ureter and retrograde ureteropyelograms were performed. An open-ended ureteral catheter was then brought up into the right ureter and guided to the level of the patient's proximal ureter. We gently tapped on the stone and dislodged into the renal pelvis. A guidewire was left in place. With cystoscopic and fluoroscopic guidance, a right-sided indwelling ureteral stent was then placed, coiled in the patient's kidneys as well as the patient's bladder. The retaining suture was cut short. Interpretation of retrograde ureteropyelography contrast was instilled in retrograde fashion bilaterally. The left side was unremarkable. There were no tumors, no stones, no diverticula. Unobstructed drainage was observed fluoroscopically. The right hand side exhibited a hydronephrosis to the level of the patient's stone. The stone was dislodged in the renal pelvis and the stent was in good position, coiled the patient's kidney as well as the patient's bladder at the end of the case. The patient's bladder was drained and cystoscope was withdrawn. Pelvic examination under anesthesia revealed a grade 1 cystocele. There was urethral hypermobility with a grade 2 rectocele and there was atrophic (senile) vaginitis. The patient was then uneventfully reversed from anesthesia and taken to the recovery room in stable condition. There were no complications to the procedure. She tolerated the procedure well. Explicit postop instructions were given. We will plan on making sure the patient's pain is adequately controlled and we will bring the patient to the operating room in several weeks to remove her stent, perform ureteroscopy, and hopefully render the patient stent free and stone free. MD SUSIE Quintero/KHARIL /[id number]
== END 2019-07-13 18:25 | disposition home or self-care (01) | DRG 661 ==
LOC: ER 00:40 → ERHOLD 05:37 → MED/SURG 20:04
PROVIDERS: ADMIT Internal Medicine; ATTEND Internal Medicine
PROC: 0TC78ZZ Extirpation of Matter from Left Ureter, Via Natural or Artificial Opening Endoscopic (ICD-10-PCS; 2019-07-12)
PROC: 0T768DZ Dilation of Right Ureter with Intraluminal Device, Via Natural or Artificial Opening Endoscopic (ICD-10-PCS; 2019-07-12)
PROC: BT141ZZ Fluoroscopy of Kidneys, Ureters and Bladder using Low Osmolar Contrast (ICD-10-PCS; 2019-07-12)
PROC: 0T778ZZ Dilation of Left Ureter, Via Natural or Artificial Opening Endoscopic (ICD-10-PCS; principal; 2019-07-12 07:30)
DX: N13.2 Hydronephrosis with renal and ureteral calculous obstruction (principal); N39.0 Urinary tract infection, site not specified; N13.9 Obstructive and reflux uropathy, unspecified; E66.9 Obesity, unspecified; Z68.34 Body mass index [BMI] 34.0-34.9, adult; K82.8 Other specified diseases of gallbladder; E78.5 Hyperlipidemia, unspecified; E78.00 Pure hypercholesterolemia, unspecified; R31.29 Other microscopic hematuria; N36.41 Hypermobility of urethra; N95.2 Postmenopausal atrophic vaginitis; N81.2 Incomplete uterovaginal prolapse
CPT/HCPCS: 36415; 71045; 74018; 74177; 74181; 74420; 76705; 76830; 80048; 80053; 80307; 81001; 82150; 82948; 83690; 83735; 83970; 84550; 85025; 87086; 93005; 99284; C1758; C2617; J0696; J1100; J1885; J2001; J2250; J2270; J2405; J3010; J7030; J7050; Q9967